=== PATIENT | female | born 1955 | race Caucasian/White ===

== ENCOUNTER 2020-12-12 14:15 | Emergency (ER) | payer MEDICARE ==
[~2020-12-12 14:15] MED LIST: ASPIRIN EC81 M1 PO; COLACE100 MG PO; COZAAR 25MG TAB25 MG PO; DILTIAZEM 24HR180 M1 PO; DILTIAZEM HCL60 MG PO; DULOXETINE HCL60 MG PO; ELIQUIS5 MG PO; FEOSOL325 MG PO; FLINTSTONES1 EAC1 PO; GLIPIZIDE ER5 MG PO; JANUVIA 100MG100 MG PO; LASIX40 MG PO; LIPITOR 10MG TA10 MG PO; METFORMIN HCL500 M1 PO; METOPROLOL TAR100 MG PO; MOBIC7.5 MG PO; PANTOPRAZOLE SO40 MG PO; POTASSIUM CHLO10 MEQ PO; SKELAXIN800 MG PO; TRAMADOL HCL50 MG PO; XARELTO20 MG PO; ZAROXOLYN2.5 MG PO
[2020-12-12] MEDS ORDERED: HYDROCODON-ACE1 EAC2 PO (15:49)
== END 2020-12-12 16:10 | disposition home or self-care (01) ==
LOC: FER 14:15
DX: S42.301A Unspecified fracture of shaft of humerus, right arm, initial encounter for closed fracture (principal); E11.9 Type 2 diabetes mellitus without complications; I10 Essential (primary) hypertension; W10.9XXA Fall (on) (from) unspecified stairs and steps, initial encounter; Y92.009 Unspecified place in unspecified non-institutional (private) residence as the place of occurrence of the external cause
CPT/HCPCS: 73030; 73090; 73110; J1885

== ENCOUNTER 2021-08-11 10:58 | Inpatient (IN) | payer MEDICARE ==
[~2021-08-11] VITALS: Ht 163 cm; Wt 120.9 kg
[~2021-08-11 10:58] MED LIST changes: +HYDROCODON-ACE1 EAC2 PO
[2021-08-11 12:36] LABS: BASOPHIL 0.3 % (0-2); EOSINOPHIL 0.3 % (0-7); HGB 16.4 g/dl (12.5-16.0); MCH 28.6 pg (25.0-31.0); MCHC 32.2 g/dL (32.0-36.0); MONOCYTE 7.7 % (0-12); MPV 10.5 fL (6.0-9.5); NEUTROPHIL 85.4 % (41-80); NRBC 0; PLT 192 K/uL (150-400); RBC 5.73 M/uL (4.20-5.40); WBC 15.5 K/uL (4.0-10.5)
[2021-08-11 12:43] LABS: BILIRUBIN 1+ mg/dL (NEGATIVE); BLOOD NEGATIVE Ery/uL (NEGATIVE); CLARITY CLEAR (CLEAR); COLOR YELLOW (YELLOW); GLUCOSE (U) 2+ mg/dL (NORMAL); LEUKOCYTES NEGATIVE Leu/uL (NEGATIVE); NITRITE POSITIVE (NEGATIVE); PROTEIN 1+ mg/dL (NEGATIVE); SPECIFIC GRAVITY >=1.030 (1.001-1.030); pH 5.5 (5.0-9.0)
[2021-08-11 13:00] LABS: LACTIC ACID 2.5 mmol/L (0.4-1.9)
[2021-08-11 13:01] LABS: BACTERIA 4+; URINARY RBC RARE
[2021-08-11 13:01] LABS: ALBUMIN 3.1 g/dL (3.4-5.0); BILIRUBIN - TOTAL 1.3 mg/dL (0.2-1.0); BUN/CREAT RATIO (CALC) 24.5 RATIO; CREATININE 0.53 mg/dL (0.51-0.95); GLOBULIN (CALCULATION) 4.7 g/dL; MAGNESIUM 1.5 mg/dL (1.8-2.4); POTASSIUM 3.9 mmol/L (3.5-5.1); TOTAL PROTEIN 7.8 g/dL (6.4-8.2)
[2021-08-12] MEDS ORDERED: LIPITOR40 MG PO (06:15)
[2021-08-12] MEDS ORDERED: OZEMPIC1 MG/0.71 SC (06:20)
[2021-08-12 06:56] LABS: BASOPHIL 0.6 % (0-2); HCT 46.5 % (37.0-47.0); HGB 14.8 g/dl (12.5-16.0); LYMPHOCYTE 8.8 % (15-48); MCH 28.6 pg (25.0-31.0); MCHC 31.8 g/dL (32.0-36.0); MCV 89.9 fL (78.0-100.0); MONOCYTE 11.9 % (0-12); MPV 10.6 fL (6.0-9.5); NEUTROPHIL 76.5 % (41-80); NRBC 0; PLT 143 K/uL (150-400); RBC 5.17 M/uL (4.20-5.40); RDW 14.2 % (11.5-14.0); WBC 9.6 K/uL (4.0-10.5)
[2021-08-12 07:19] LABS: ALBUMIN 2.5 g/dL (3.4-5.0); BILIRUBIN - TOTAL 3.2 mg/dL (0.2-1.0); BUN/CREAT RATIO (CALC) 23.8 RATIO; CREATININE 0.8 mg/dL (0.51-0.95); GLOBULIN (CALCULATION) 3.6 g/dL; POTASSIUM 3.9 mmol/L (3.5-5.1); TOTAL PROTEIN 6.1 g/dL (6.4-8.2)
[2021-08-13 06:49] LABS: BASOPHIL 0.3 % (0-2); EOSINOPHIL 2.1 % (0-7); HCT 45.9 % (37.0-47.0); HGB 14.3 g/dl (12.5-16.0); LYMPHOCYTE 6.8 % (15-48); MCH 28.6 pg (25.0-31.0); MCHC 31.2 g/dL (32.0-36.0); MCV 91.8 fL (78.0-100.0); MONOCYTE 11.3 % (0-12); MPV 10.6 fL (6.0-9.5); NEUTROPHIL 79.2 % (41-80); NRBC 0; PLT 146 K/uL (150-400); RDW 14.3 % (11.5-14.0); WBC 11.4 K/uL (4.0-10.5)
[2021-08-13 07:09] LABS: ALBUMIN 2.4 g/dL (3.4-5.0); BILIRUBIN - TOTAL 2.2 mg/dL (0.2-1.0); BUN/CREAT RATIO (CALC) 23.3 RATIO; CREATININE 0.6 mg/dL (0.51-0.95); GLOBULIN (CALCULATION) 3.8 g/dL; TOTAL PROTEIN 6.2 g/dL (6.4-8.2)
[2021-08-13 14:44] LABS: BASOPHIL 0.2 % (0-2); EOSINOPHIL 2.9 % (0-7); HCT 44.9 % (37.0-47.0); HGB 13.7 g/dl (12.5-16.0); LYMPHOCYTE 6.5 % (15-48); MCH 28.4 pg (25.0-31.0); MCHC 30.5 g/dL (32.0-36.0); MCV 93.2 fL (78.0-100.0); MONOCYTE 10.2 % (0-12); MPV 10.5 fL (6.0-9.5); NEUTROPHIL 79.8 % (41-80); NRBC 0; PLT 147 K/uL (150-400); RBC 4.82 M/uL (4.20-5.40); RDW 14.1 % (11.5-14.0); WBC 9.9 K/uL (4.0-10.5)
[2021-08-13 15:08] LABS: ALBUMIN 2.1 g/dL (3.4-5.0); BILIRUBIN - DIRECT 1.3 mg/dL (0.00-0.20); BILIRUBIN - TOTAL 1.9 mg/dL (0.2-1.0); BUN/CREAT RATIO (CALC) 15.4 RATIO; CREATININE 0.65 mg/dL (0.51-0.95); POTASSIUM 4.4 mmol/L (3.5-5.1); TOTAL PROTEIN 6.1 g/dL (6.4-8.2)
[2021-08-14 07:09] LABS: ALBUMIN 2.2 g/dL (3.4-5.0); BILIRUBIN - TOTAL 1.2 mg/dL (0.2-1.0); BUN/CREAT RATIO (CALC) 19.6 RATIO; CREATININE 0.56 mg/dL (0.51-0.95); GLOBULIN (CALCULATION) 3.8 g/dL; POTASSIUM 4.1 mmol/L (3.5-5.1)
--- NOTE | 2021-08-14 16:32 | NUR ---
PT RESIDES WITH SPOUSE. IS INDEPENDENT. SHE WILL NEED TO BE MONITORED FOR O2 NEEDS.
[2021-08-15 06:15] LABS: BASOPHIL 0.6 % (0-2); EOSINOPHIL 6.3 % (0-7); HCT 44.6 % (37.0-47.0); HGB 13.9 g/dl (12.5-16.0); LYMPHOCYTE 15.9 % (15-48); MCH 28.7 pg (25.0-31.0); MCHC 31.2 g/dL (32.0-36.0); MCV 92.1 fL (78.0-100.0); MONOCYTE 12.9 % (0-12); MPV 10.3 fL (6.0-9.5); NRBC 0; PLT 176 K/uL (150-400); RBC 4.84 M/uL (4.20-5.40); RDW 13.9 % (11.5-14.0)
[2021-08-15 06:48] LABS: CREATININE 0.57 mg/dL (0.51-0.95)
[2021-08-15 07:26] LABS: BILIRUBIN - TOTAL 0.8 mg/dL (0.2-1.0); GLOBULIN (CALCULATION) 4.1 g/dL; TOTAL PROTEIN 6.1 g/dL (6.4-8.2)
--- NOTE | 2021-08-15 09:54 | NUR ---
PT WITH AFIB RVR, HR [id number]. NOTIFIED , ORDERS TO TRANSFER TO TCU. REPORT CALLED TO C[facility]STIANO PT TRANSFERED [id number]
--- NOTE | 2021-08-15 17:31 | NUR ---
08/15/21 Ms. Pedraza lives at home with her spouse. She has a C-PAP and cane. Dr. Allison Mckinnon is the PCP. - Ms. Pedraza chose [facility] for any 02 needs at discharge.
--- NOTE | 2021-08-15 21:17 | NUR ---
DECREASED AMIO GTT TO 16.6 PER PROTOCOL.
[2021-08-16 05:44] LABS: BASOPHIL 0.1 % (0-2); EOSINOPHIL 0.1 % (0-7); HCT 44.3 % (37.0-47.0); HGB 14.2 g/dl (12.5-16.0); LYMPHOCYTE 12.2 % (15-48); MCH 28.4 pg (25.0-31.0); MCHC 32.1 g/dL (32.0-36.0); MCV 88.6 fL (78.0-100.0); MONOCYTE 7.5 % (0-12); MPV 10.7 fL (6.0-9.5); NEUTROPHIL 79.6 % (41-80); NRBC 0; PLT 198 K/uL (150-400); RDW 13.5 % (11.5-14.0); WBC 8.7 K/uL (4.0-10.5)
[2021-08-16 06:08] LABS: BUN/CREAT RATIO (CALC) 19.2 RATIO; CREATININE 0.52 mg/dL (0.51-0.95); MAGNESIUM 1.7 mg/dL (1.8-2.4); PHOSPHORUS 1.3 mg/dL (2.6-4.7); POTASSIUM 4.2 mmol/L (3.5-5.1)
[2021-08-17 05:56] LABS: BASOPHIL 0.2 % (0-2); EOSINOPHIL 0 % (0-7); HCT 46.5 % (37.0-47.0); MCH 28.3 pg (25.0-31.0); MCHC 32.3 g/dL (32.0-36.0); MCV 87.7 fL (78.0-100.0); MONOCYTE 6.1 % (0-12); MPV 10.5 fL (6.0-9.5); NEUTROPHIL 84.4 % (41-80); NRBC 0; PLT 258 K/uL (150-400); RDW 13.8 % (11.5-14.0); WBC 11.9 K/uL (4.0-10.5)
--- NOTE | 2021-08-17 06:14 | NUR ---
TOOK OVER PATIENT CARE AT 0400 FROM [facility].
[2021-08-17 06:22] LABS: CREATININE 0.56 mg/dL (0.51-0.95)
[2021-08-17 16:49] LABS: CREATININE 0.56 mg/dL (0.51-0.95)
[2021-08-18 04:18] LABS: BASOPHIL 0.1 % (0-2); EOSINOPHIL 0 % (0-7); HCT 44.1 % (37.0-47.0); HGB 14.1 g/dl (12.5-16.0); LYMPHOCYTE 9.4 % (15-48); MCH 28.2 pg (25.0-31.0); MCV 88.2 fL (78.0-100.0); MONOCYTE 6.1 % (0-12); MPV 10.4 fL (6.0-9.5); NEUTROPHIL 83.8 % (41-80); NRBC 0; PLT 265 K/uL (150-400); WBC 14.3 K/uL (4.0-10.5)
[2021-08-18 04:42] LABS: BUN/CREAT RATIO (CALC) 41.1 RATIO; CREATININE 0.56 mg/dL (0.51-0.95)
--- NOTE | 2021-08-18 05:35 | NUR ---
08/170- PT BG WAS 412. NOTIFIED DREW ROA. STONECUTTER APPRENTICE HAND ORDERED 30 UNITS SEMGLEE AND 10 UNITS REGULAR INSULIN. TOLD TO RECHECK. 08/18 0012- PT BG WAS 356. NOTIFIED DREW ROA. STONECUTTER APPRENTICE HAND ORDERED 8 UNITS REGULAR INSULIN.
--- NOTE | 2021-08-19 01:51 | NUR ---
STOPPED CARDIZEM DRIP AT 1345. PT IS RESTING COMFORTABLY AND HR IS IN 70'S.
[2021-08-19 06:05] LABS: BASOPHIL 0.2 % (0-2); EOSINOPHIL 1.1 % (0-7); HCT 46.1 % (37.0-47.0); HGB 14.7 g/dl (12.5-16.0); LYMPHOCYTE 15.8 % (15-48); MCH 28.4 pg (25.0-31.0); MCHC 31.9 g/dL (32.0-36.0); MONOCYTE 8.2 % (0-12); MPV 10.4 fL (6.0-9.5); NEUTROPHIL 73.9 % (41-80); NRBC 0; PLT 284 K/uL (150-400); RBC 5.18 M/uL (4.20-5.40); WBC 14.1 K/uL (4.0-10.5)
[2021-08-19 06:23] LABS: BUN/CREAT RATIO (CALC) 34.9 RATIO; CREATININE 0.63 mg/dL (0.51-0.95); POTASSIUM 3.9 mmol/L (3.5-5.1)
[2021-08-19] MEDS ORDERED: DITROPAN XL *OUT5 MG PO (14:05)
[2021-08-19] MEDS ORDERED: ESTRADIOL VG (14:07)
[2021-08-19] MEDS ORDERED: TRIMETHOPRIM PO (14:14)
[2021-08-19] MEDS ORDERED: PROMETHAZINE-D473 M1 PO (14:15)
[2021-08-19] MEDS ORDERED: LASIX40 MG PO (14:15)
[2021-08-19] MEDS ORDERED: K-TAB ER10 MEQ PO (14:17)
[2021-08-19] MEDS ORDERED: TESSALON PERLE100 MG PO (14:17)
[2021-08-19] MEDS ORDERED: TOPROL XL200 MG PO (14:20)
[2021-08-19] MEDS ORDERED: REQUIP0.25 MG PO (14:20)
[2021-08-19] MEDS ORDERED: TRAZODONE 50MG50 MG PO (14:21)
[2021-08-19] MEDS ORDERED: DICLOFENAC SODI75 MG PO (14:22)
[2021-08-19] MEDS ORDERED: DAILY VALUE1 EACH PO (14:22)
[2021-08-19] MEDS ORDERED: METOLAZONE2.5 MG PO (14:24)
[2021-08-20 06:15] LABS: BASOPHIL 0.3 % (0-2); EOSINOPHIL 3.9 % (0-7); HCT 45.9 % (37.0-47.0); HGB 14.5 g/dl (12.5-16.0); LYMPHOCYTE 21.1 % (15-48); MCH 28.4 pg (25.0-31.0); MCHC 31.6 g/dL (32.0-36.0); MCV 89.8 fL (78.0-100.0); MONOCYTE 10.5 % (0-12); MPV 10.6 fL (6.0-9.5); NEUTROPHIL 63.1 % (41-80); NRBC 0; PLT 258 K/uL (150-400); RBC 5.11 M/uL (4.20-5.40); RDW 14.1 % (11.5-14.0); WBC 11.9 K/uL (4.0-10.5)
[2021-08-20 06:34] LABS: BUN/CREAT RATIO (CALC) 36.2 RATIO; CREATININE 0.69 mg/dL (0.51-0.95); MAGNESIUM 1.9 mg/dL (1.8-2.4); POTASSIUM 4.4 mmol/L (3.5-5.1)
--- NOTE | 2021-08-20 14:09 | NUR ---
08/20 Patient will be transferred to [facility].
== END 2021-08-20 14:23 | disposition other institution (70) | DRG 417 ==
LOC: FER 10:58 → FMS 16:13 → FICU 08-15 07:39 → FTCU 08-18 15:05
PROVIDERS: Emergency Medicine; Family Medicine; Internal Medicine; Student in an Organized Health Care Education/Training Program; ADMIT Allergy & Immunology Allergy
PROC: 8E0ZXY6 Isolation (ICD-10-PCS; 2021-08-11)
PROC: 0FT44ZZ Resection of Gallbladder, Percutaneous Endoscopic Approach (ICD-10-PCS; principal; 2021-08-12 09:32)
PROC: 3E0333Z Introduction of Anti-inflammatory into Peripheral Vein, Percutaneous Approach (ICD-10-PCS; 2021-08-15)
DX: K80.62 Calculus of gallbladder and bile duct with acute cholecystitis without obstruction (principal); K85.90 Acute pancreatitis without necrosis or infection, unspecified; U07.1 COVID-19; J12.82 Pneumonia due to coronavirus disease 2019; J96.01 Acute respiratory failure with hypoxia; N30.00 Acute cystitis without hematuria; Z68.42 Body mass index [BMI] 45.0-49.9, adult; I10 Essential (primary) hypertension; E11.65 Type 2 diabetes mellitus with hyperglycemia; E78.5 Hyperlipidemia, unspecified; K21.9 Gastro-esophageal reflux disease without esophagitis; D50.9 Iron deficiency anemia, unspecified; R13.10 Dysphagia, unspecified; E66.01 Morbid (severe) obesity due to excess calories; I48.91 Unspecified atrial fibrillation; E87.70 Fluid overload, unspecified; Z95.2 Presence of prosthetic heart valve; Z90.710 Acquired absence of both cervix and uterus; Z98.890 Other specified postprocedural states; Z79.899 Other long term (current) drug therapy; Z79.84 Long term (current) use of oral hypoglycemic drugs; Z79.82 Long term (current) use of aspirin; Z88.8 Allergy status to other drugs, medicaments and biological substances; Z91.041 Radiographic dye allergy status; Z91.040 Latex allergy status
CPT/HCPCS: 36415; 71045; 80048; 80053; 80076; 81001; 82575; 82962; 83605; 83690; 83735; 83880; 84100; 84145; 84484; 85025; 93005; 94640; 97162; 97530-GP; C1758; C9113; J0282; J1160; J1170; J1644; J1650; J1815; J1940; J2060; J2250; J2405; J2543; J2550; J2704; J2710; J3010; J3475; J7030; J7060; J7120; J8540; Q9967; U0002

== ENCOUNTER → 2021-11-21 | Day surgery (SDC) | payer MEDICARE ==
[~2021-11-21] VITALS: Ht 162.6 cm; Wt 118.2 kg
[~2021-11-21] MED LIST changes: +AMIODARONE HCL200 M1 PO; +DAILY VALUE1 EACH PO; +DICLOFENAC SODI75 MG PO; +DILTIAZEM 24HR120 M1 PO; +DITROPAN XL *OUT5 MG PO; +ESTRADIOL VG; +K-TAB ER10 MEQ PO; +LIPITOR40 MG PO; +METOLAZONE2.5 MG PO; +OZEMPIC1 MG/0.71 SC; +PROMETHAZINE-D473 M1 PO; +REQUIP0.25 MG PO; +TESSALON PERLE100 MG PO; +TOPROL XL200 MG PO; +TRAZODONE 50MG50 MG PO; +TRIMETHOPRIM PO
== END | disposition home or self-care (01) ==
LOC: FAS 06:29
DX: K29.51 Unspecified chronic gastritis with bleeding (principal); K21.01 Gastro-esophageal reflux disease with esophagitis, with bleeding; K22.89 Other specified disease of esophagus; E11.9 Type 2 diabetes mellitus without complications; G47.30 Sleep apnea, unspecified; I25.10 Atherosclerotic heart disease of native coronary artery without angina pectoris; I10 Essential (primary) hypertension; I48.91 Unspecified atrial fibrillation; M06.9 Rheumatoid arthritis, unspecified; Z86.73 Personal history of transient ischemic attack (TIA), and cerebral infarction without residual deficits; Z87.891 Personal history of nicotine dependence; Z79.01 Long term (current) use of anticoagulants; Z79.82 Long term (current) use of aspirin; Z79.84 Long term (current) use of oral hypoglycemic drugs; Z79.899 Other long term (current) drug therapy; Z88.8 Allergy status to other drugs, medicaments and biological substances; Z91.040 Latex allergy status; Z91.041 Radiographic dye allergy status; Z90.49 Acquired absence of other specified parts of digestive tract; Z95.1 Presence of aortocoronary bypass graft; Z95.2 Presence of prosthetic heart valve
CPT/HCPCS: J2704; J7120